=== PATIENT | female | born 1940 | race Caucasian/White ===

== ENCOUNTER 2021-01-01 06:56 | Day surgery (SDC) | payer MEDICARE, OTHER ==
[2020-12-31 12:31] LABS: BASOPHILS # (AUTO) 0.1 X10'3 (0-0.2); BASOPHILS % (AUTO) 0.9 % (0-1); EOSINOPHILS # (AUTO) 0.2 X10'3 (0-0.9); EOSINOPHILS % (AUTO) 2.1 % (0-6); HEMOGLOBIN 12.8 g/dl (12.0-16.0); LYMPHOCYTES # (AUTO) 1.7 X10'3 (1.1-4.8); LYMPHOCYTES % (AUTO) 22.9 % (21-51); MEAN CORPUSCULAR HEMOGLOBIN 30.8 PG (27.0-31.0); MEAN CORPUSCULAR HGB CONC 33.8 g/dL (33.0-36.5); MONOCYTES # (AUTO) 0.9 X10'3 (0-0.9); MONOCYTES % (AUTO) 11.9 % (2-12); NEUTROPHILS # (AUTO) 4.6 X10'3 (1.8-7.7); NEUTROPHILS % (AUTO) 62.2 % (42-75); PLATELET COUNT 258 X10'3 (140-440); RED BLOOD COUNT 4.17 X10'6 (4.20-5.60); RED CELL DISTRIBUTION WIDTH 13.8 % (11.5-14.5); WHITE BLOOD COUNT 7.3 X10'3 (4.5-11.0)
[2020-12-31 12:38] LABS: ALBUMIN 3.3 G/DL (3.4-5.0); ANION GAP 5 (8-16); BLOOD UREA NITROGEN 17 MG/DL (7-18); BUN/CREATININE RATIO 17.9 (6.6-38.0); CALCIUM 8.4 MG/DL (8.5-10.1); CHLORIDE 100 MMOL/L (99-107); CREATININE 0.95 MG/DL (0.40-0.90); GLUCOSE 104 MG/DL (70-104); POTASSIUM 4.7 MMOL/L (3.5-5.1); SODIUM 134 MMOL/L (135-145); eGFR 56 ML/MIN
[2020-12-31 12:41] LABS: PARTIAL THROMBOPLASTIN TIME 26 SECONDS (22-32)
[~2021-01-01] VITALS: Ht 167.6 cm; Wt 66.7 kg
[2021-01-01] VITALS (10 sets, daily range): BP systolic 124–154; BP diastolic 62–89
[~2021-01-01 06:56] MED LIST: AMIT25TA9 PO; AMLO5TAB10 PO; ASPI-611 PO; CYAN500T71 PO; MAGN400T39 PO; NAPR220T67 PO; OMEG-79 PO; OMEP20TA5 PO; PRED10TA23 PO
[2021-01-01] MEDS ORDERED: GABA300C PO (07:29)
[2021-01-01] MEDS ORDERED: TRIA1TAB3 PO (07:29)
[2021-01-01] MEDS ORDERED: AMLO5TAB16 PO (07:29)
[2021-01-01] MEDS ORDERED: ATOR10TA70 PO (07:29)
[2021-01-01] MEDS ORDERED: CALC600T22 PO (07:39)
[2021-01-01] MEDS ORDERED: CARV-49 PO (07:39)
[2021-01-01] MEDS ORDERED: AMIO200T62 PO (07:39)
[2021-01-01] MEDS ORDERED: MULT-1133 PO (07:39)
[2021-01-01] MEDS ORDERED: fentaNYL/PF 50MCG/1 ML 2ML syringe ONE (09:19)
[2021-01-01] MEDS ORDERED: LIDOcaine 1% W/epiNEPHrine 1:100,000 20ml vial ONE ×2 (09:20→10:10)
[2021-01-01] MEDS ORDERED: ceFAZolin 1000mg inj ONE (09:20)
[2021-01-01] MEDS ORDERED: midazolam 1 mg/ML 2ml injection ONE ×2 (09:20→10:21)
[2021-01-01] MEDS ORDERED: ceFAZolin 2gm in dextrose, iso 50 ML IV ONE (09:48)
[2021-01-01] MEDS ORDERED: HYDROcodone/acetaminophen 10/325mg tab PO PRN (11:40)
[2021-01-01] MEDS ORDERED: HYDROcodone/acetaminophen 5mg/325mg tablet PO PRN (11:40)
[2021-01-01] MEDS ORDERED: vancomycin/NS 1 GM ADD-VANTAGE 250 ML IV ONE (12:00)
== END 2021-01-01 16:14 | disposition home or self-care (01) ==
LOC: SSTAY O 06:56
PROVIDERS: ATTEND Internal Medicine Cardiovascular Disease
DX: I49.5 Sick sinus syndrome (principal); I35.0 Nonrheumatic aortic (valve) stenosis; I10 Essential (primary) hypertension; E78.5 Hyperlipidemia, unspecified; J44.9 Chronic obstructive pulmonary disease, unspecified; D64.9 Anemia, unspecified; M19.09 Primary osteoarthritis, other specified site; G47.00 Insomnia, unspecified; Z87.891 Personal history of nicotine dependence; Z79.01 Long term (current) use of anticoagulants; Z72.89 Other problems related to lifestyle; Z79.899 Other long term (current) drug therapy; Z79.82 Long term (current) use of aspirin; Z90.710 Acquired absence of both cervix and uterus; Z98.890 Other specified postprocedural states; Z82.49 Family history of ischemic heart disease and other diseases of the circulatory system; Z83.6 Family history of other diseases of the respiratory system; Z80.9 Family history of malignant neoplasm, unspecified
CPT/HCPCS: 33208; 36415; 71046; 80048; 85025; 85610; 85730; 93005; 99152; 99153; C1785; C1894; C1898; J0690; J2250; J3010; J3370; A4565; A4620; A6258; A6449

== ENCOUNTER 2023-01-26 06:13 | Day surgery (SDC) | payer MEDICARE, OTHER ==
[2023-01-25 11:43] LABS: BASOPHILS % (AUTO) 0.7 % (0-1); EOSINOPHILS # (AUTO) 0.1 X10'3 (0-0.9); EOSINOPHILS % (AUTO) 2.2 % (0-6); HEMATOCRIT 36.9 % (35.0-45.0); HEMOGLOBIN 12.3 g/dl (12.0-16.0); LYMPHOCYTES # (AUTO) 1.7 X10'3 (1.1-4.8); LYMPHOCYTES % (AUTO) 24.8 % (21-51); MEAN CORPUSCULAR HEMOGLOBIN 30.5 PG (27.0-31.0); MEAN CORPUSCULAR HGB CONC 33.4 g/dL (33.0-36.5); MEAN CORPUSCULAR VOLUME 91.2 FL (78-98); MEAN PLATELET VOLUME 8.4 FL (7.4-10.4); MONOCYTES % (AUTO) 14.2 % (2-12); NEUTROPHILS # (AUTO) 3.9 X10'3 (1.8-7.7); NEUTROPHILS % (AUTO) 58.1 % (42-75); PLATELET COUNT 220 X10'3 (140-440); RED BLOOD COUNT 4.05 X10'6 (4.20-5.60); RED CELL DISTRIBUTION WIDTH 14.9 % (11.5-14.5); WHITE BLOOD COUNT 6.7 X10'3 (4.5-11.0)
[2023-01-25 11:52] LABS: ALBUMIN 3.3 G/DL (3.4-5.0); ANION GAP 10 (8-16); BLOOD UREA NITROGEN 17 MG/DL (7-18); BUN/CREATININE RATIO 18.7 (10.0-20.0); CHLORIDE 102 MMOL/L (99-107); CREATININE 0.91 MG/DL (0.40-0.90); GLUCOSE 105 MG/DL (70-104); POTASSIUM 4.2 MMOL/L (3.5-5.1); SODIUM 138 MMOL/L (135-145); eGFR 59 ML/MIN
[2023-01-25 11:57] LABS: APTT 26 SECONDS (22-32)
[~2023-01-26] VITALS: Ht 167.6 cm; Wt 70.4 kg
[2023-01-26] VITALS (12 sets, daily range): BP systolic 105–147; BP diastolic 51–82; PULSE 60–77; RESP 10–19; TEMP 98.2; O2SAT 92–98
[~2023-01-26 06:13] MED LIST changes: +AMIO200T72 PO; -AMIT25TA9 PO; -AMLO5TAB10 PO; +AMLO5TAB16 PO; -ASPI-611 PO; +ATOR10TA70 PO; +CALC600T22 PO; +CARV-49 PO; -CYAN500T71 PO; +GABA300C PO; -MAGN400T39 PO; +MULT-1133 PO; -NAPR220T67 PO; -OMEG-79 PO; -OMEP20TA5 PO; -PRED10TA23 PO; +TRIA1TAB3 PO
[2023-01-26] MEDS ORDERED: LORazepam 0.5 MG tablet PO PRN (06:30)
[2023-01-26] MEDS ORDERED: normal saline 1,000 ML IV SCH (06:30)
[2023-01-26] MEDS ORDERED: diphenhydrAMINE 25mg capsule PO PRN (06:30)
[2023-01-26] MEDS ORDERED: CARV6.253 PO (06:38)
[2023-01-26] MEDS ORDERED: GABA300C PO (06:38)
[2023-01-26] MEDS ORDERED: CALC600T21 PO (06:38)
[2023-01-26] MEDS ORDERED: nitroGLYCERIN-Tridil 50MG/D5W 250 ML IV ONE (07:32)
[2023-01-26] MEDS ORDERED: verapamil 2.5 mg/ml inj IV ONE (07:32)
[2023-01-26] MEDS ORDERED: LIDOcaine 1% (10mg/ml) 2ml vial ONE (07:32)
[2023-01-26] MEDS ORDERED: fentaNYL/PF 50MCG/1 ML 2ML syringe ONE (07:33)
[2023-01-26] MEDS ORDERED: iohexol 350MG/ML 100ml bottle IV ONE (07:33)
[2023-01-26] MEDS ORDERED: midazolam 1 mg/ML 2ml injection ONE (07:33)
[2023-01-26] MEDS ORDERED: heparin 1,000unit/ml 10ml vial 10 ML ONE (07:33)
[2023-01-26] MEDS ORDERED: iohexol 350 MG/ML 50ML vial IV ONE (07:33)
[2023-01-26] MEDS ORDERED: LIDOcaine 1% 30ml preserv. free vial ONE (08:29)
[2023-01-26] MEDS ORDERED: heparin 25,000 UNIT/250ml bag 0 ML IV ONE (08:44)
[2023-01-26 09:35] LABS: ISTAT HGB ART 11.6 g/dl (12.0-16.0); ISTAT Hct ART 34 %PCV (35-45); ISTAT O2 SATURATION ARTERIAL 95 % (95-98); ISTAT SOURCE ART
[2023-01-26 10:03] LABS: ISTAT Hct MIX 35 %PCV (35-45); ISTAT O2 SATURATION MIX VENOUS 70 % (60-80); ISTAT SOURCE VEN
[2023-01-26] MEDS ORDERED: normal saline 1000ml 1,000 ML IV ONE (10:10)
== END 2023-01-26 14:50 | disposition home or self-care (01) ==
LOC: SSTAY O 06:13
PROVIDERS: ATTEND Internal Medicine Cardiovascular Disease
DX: I35.0 Nonrheumatic aortic (valve) stenosis (principal); I25.10 Atherosclerotic heart disease of native coronary artery without angina pectoris; E78.5 Hyperlipidemia, unspecified; I10 Essential (primary) hypertension; D64.9 Anemia, unspecified; M13.88 Other specified arthritis, other site; G47.00 Insomnia, unspecified; J44.9 Chronic obstructive pulmonary disease, unspecified; I47.1 Supraventricular tachycardia; I49.5 Sick sinus syndrome; Z98.890 Other specified postprocedural states; Z90.710 Acquired absence of both cervix and uterus; Z95.0 Presence of cardiac pacemaker; Z79.899 Other long term (current) drug therapy; Z72.89 Other problems related to lifestyle; Z79.01 Long term (current) use of anticoagulants; Z87.891 Personal history of nicotine dependence; Z82.5 Family history of asthma and other chronic lower respiratory diseases; Z82.49 Family history of ischemic heart disease and other diseases of the circulatory system
CPT/HCPCS: 36415; 76937; 80048; 82803; 85014; 85025; 85610; 85730; 93005; 93460; 93567; 99152; 99153; A6258; J1644; J2250; J3010; J3490; J7030; Q0163; Q9967; A6402; C1725; C1751; C1769; C1894

== ENCOUNTER 2023-02-18 09:33 | Outpatient (CLI) | payer MEDICARE, OTHER ==
[~2023-02-18 09:33] MED LIST changes: -AMIO200T72 PO; +CALC600T21 PO; -CALC600T22 PO; -CARV-49 PO; +CARV6.253 PO
[2023-02-18 10:10] LABS: BASOPHILS % (AUTO) 0.7 % (0-1); EOSINOPHILS # (AUTO) 0.1 X10'3 (0-0.9); EOSINOPHILS % (AUTO) 2.3 % (0-6); HEMATOCRIT 38.6 % (35.0-45.0); HEMOGLOBIN 12.7 g/dl (12.0-16.0); LYMPHOCYTES # (AUTO) 1.5 X10'3 (1.1-4.8); LYMPHOCYTES % (AUTO) 26.8 % (21-51); MEAN CORPUSCULAR HEMOGLOBIN 30.1 PG (27.0-31.0); MEAN CORPUSCULAR HGB CONC 32.9 g/dL (33.0-36.5); MEAN CORPUSCULAR VOLUME 91.5 FL (78-98); MEAN PLATELET VOLUME 8.4 FL (7.4-10.4); MONOCYTES # (AUTO) 0.8 X10'3 (0-0.9); MONOCYTES % (AUTO) 13.6 % (2-12); NEUTROPHILS # (AUTO) 3.2 X10'3 (1.8-7.7); NEUTROPHILS % (AUTO) 56.6 % (42-75); PLATELET COUNT 228 X10'3 (140-440); RED BLOOD COUNT 4.22 X10'6 (4.20-5.60); RED CELL DISTRIBUTION WIDTH 14.7 % (11.5-14.5); WHITE BLOOD COUNT 5.6 X10'3 (4.5-11.0)
[2023-02-18 10:29] LABS: APTT 25 SECONDS (22-32); PROTHROMBIN TIME 10.5 SECONDS (9.0-12.0)
[2023-02-18 10:39] LABS: ALANINE AMINOTRANSFERASE 14 U/L (12-78); ALBUMIN 3.5 G/DL (3.4-5.0); ALBUMIN/GLOBULIN RATIO 0.9 (1.1-1.5); ALKALINE PHOSPHATASE 72 IU/L (46-116); ANION GAP 5 (8-16); ASPARTATE AMINO TRANSFERASE 35 U/L (10-37); BILIRUBIN,TOTAL 0.5 MG/DL (0.1-1.0); BLOOD UREA NITROGEN 19 MG/DL (7-18); BUN/CREATININE RATIO 21.3 (10.0-20.0); CALCIUM 9.5 MG/DL (8.5-10.1); CHLORIDE 101 MMOL/L (99-107); CREATININE 0.89 MG/DL (0.40-0.90); GLUCOSE 113 MG/DL (70-104); PRO BRAIN NATRIURETIC PEPTIDE 319 PG/ML (0-450); SODIUM 138 MMOL/L (135-145); TOTAL CARBON DIOXIDE 31.7 MMOL/L (24-32); TOTAL PROTEIN 7.2 G/DL (6.4-8.2); eGFR 60 ML/MIN
[2023-02-18] MEDS ORDERED: IODIXANOL 320 MG/ML 150ml INFUS..BTL IV ONE (20:00)
== END 2023-02-18 23:59 | disposition home or self-care (01) ==
LOC: VAS 09:33 → RAD 23:59
PROVIDERS: ATTEND Internal Medicine Cardiovascular Disease
DX: I35.0 Nonrheumatic aortic (valve) stenosis (principal); R06.02 Shortness of breath; I65.23 Occlusion and stenosis of bilateral carotid arteries; I70.0 Atherosclerosis of aorta; M41.84 Other forms of scoliosis, thoracic region; M47.814 Spondylosis without myelopathy or radiculopathy, thoracic region; Z90.710 Acquired absence of both cervix and uterus
CPT/HCPCS: 36415; 71046; 71275; 74174; 75572; 80053; 83880; 85025; 85610; 85730; 93880; Q9967

== ENCOUNTER 2023-02-25 14:40 | Outpatient (CLI) | payer MEDICARE, OTHER ==
[~2023-02-25] VITALS: Ht 167.6 cm; Wt 71.8 kg
[~2023-02-25 14:40] MED LIST changes: +IODIXANOL 320 MG/ML INFUS..BTL 100ML IV ONE
--- NOTE | 2023-02-25 15:19 | NUR ---
Patient and Daughter Octavio were in the [facility] clinic today to consult with Dr. Espinoza, Dr. Lui Cervantes and Dr. Marshall. [facility] test completed. Vital signs measured. Patient education reviewed and questions answered.
[2023-02-25 15:23] VITALS: BP 185/74; PULSE 72; RESP 22; TEMP 97.1; O2SAT 99
== END 2023-02-25 23:59 | disposition home or self-care (01) ==
LOC: TAVR 14:40
PROVIDERS: ATTEND Internal Medicine Cardiovascular Disease
DX: I35.0 Nonrheumatic aortic (valve) stenosis (principal); R06.02 Shortness of breath; I65.29 Occlusion and stenosis of unspecified carotid artery
CPT/HCPCS: Q9967

== ENCOUNTER 2023-03-26 15:26 | Emergency (ER) | payer MEDICARE, OTHER ==
[~2023-03-26] VITALS: Ht 167.6 cm; Wt 68.2 kg
[~2023-03-26 15:26] MED LIST changes: -IODIXANOL 320 MG/ML INFUS..BTL 100ML IV ONE
[2023-03-26 16:01] VITALS: BP 160/73; PULSE 60; RESP 18; TEMP 97.3; O2SAT 96
[2023-03-26] MEDS ORDERED: IBUP-1984 PO (19:44)
[2023-03-26] MEDS ORDERED: ibuprofen tablet 400 MG TABLET PO ONE (19:45)
== END 2023-03-26 19:48 | disposition home or self-care (01) ==
LOC: ER 15:28
DX: M71.21 Synovial cyst of popliteal space [Baker], right knee (principal); I10 Essential (primary) hypertension; Z88.1 Allergy status to other antibiotic agents; Z79.899 Other long term (current) drug therapy; Z79.1 Long term (current) use of non-steroidal anti-inflammatories (NSAID)
CPT/HCPCS: 93971; 99284